=== PATIENT | female | born 1940 | race Asian ===

== ENCOUNTER 2020-07-06 21:50 | Emergency (ER) | payer OTHER ==
[~2020-07-06] VITALS: Ht 149.9 cm; Wt 54.4 kg
[2020-07-06 22:28] LABS: EOSINOPHILS % (AUTO) 0.1 % (0.0-6.0); HEMOGLOBIN 11.8 g/dL (11.5-14.8); NEUTROPHILS # (AUTO) 9.3 /CMM (1.8-8.9)
[2020-07-06] MEDS ORDERED: IV NS 0.9% 1,000 ML BAG IV ONE (22:30)
[2020-07-06 22:31] LABS: BASOPHILS % (AUTO) 0.2 % (0.0-2.0); HEMATOCRIT 34 % (33-45); LYMPHOCYTES # (AUTO) 0.2 /CMM (0.8-4.8); LYMPHOCYTES % (AUTO) 1.6 % (20.0-44.0); MEAN CORPUSCULAR HGB CONC 35 g/dl (31.0-36.0); MEAN CORPUSCULAR VOLUME 95 fL (82-100); MONOCYTES % (AUTO) 9.1 % (2.0-12.0); PLATELET COUNT (AUTO) 149 /CMM (150-450); RED BLOOD CELL COUNT(AUTO) 3.57 MIL/uL (4.0-5.2); WHITE BLOOD COUNT (AUTO) 10.5 K/uL (4.3-11.0)
[2020-07-06 22:38] LABS: CALCIUM, SERUM 8.4 mg/dL (8.5-10.1); CARBON DIOXIDE 27 mmol/L (21-32); CHLORIDE 102 mmol/L (98-107); CREATININE 1.4 mg/dL (0.6-1.3); GLUCOSE 178 mg/dL (74-106); POTASSIUM 3.9 mmol/L (3.5-5.1); SODIUM SERUM 137 mmol/L (136-145); UREA NITROGEN, BLOOD 39 mg/dL (7-18)
[2020-07-06 22:43] LABS: ALANINE AMINOTRANSFERASE 8 U/L (12-78); ALBUMIN 3.3 g/dL (3.4-5.0); ALKALINE PHOSPHATASE 63 U/L (46-116); ASPARTATE AMINOTRANSFERASE 21 U/L (15-37); BILIRUBIN,DIRECT 0.3 mg/dL (0.0-0.2); TOTAL PROTEIN, SERUM 7.2 g/dL (6.4-8.2)
[2020-07-06 23:24] LABS: BILIRUBIN,URINE Negative (NEGATIVE); COLOR,URINE ORANGE (YELLOW); LEUKOCYTE ESTERASE ,URINE Large (NEGATIVE); NITRITE, URINE Positive (NEGATIVE); PROTEIN,URINE 100 mg/dl (NEGATIVE); UGLUCOSE Negative (NEGATIVE); UROBILINOGEN,URINE 0.2 EU/dL (0.2)
[2020-07-06 23:36] LABS: BACTERIA,URINE 3+ /HPF (None Seen); WBC,URINE 51-80 /HPF (0-3)
[2020-07-07] MEDS ORDERED: LEVOFLOXACIN 500 MG /D5W 100ML 100 ML IV ONE (00:43)
[2020-07-07] MEDS ORDERED: AZITHROMYCIN 500 MG in IV D5W 250 ML IV ONE (01:00)
[2020-07-07] MEDS ORDERED: LEVOFLOXACIN 500 MG /D5W 100ML 500 MG/100 ML PIGGYBACK IV ONE (01:00)
[2020-07-07] MEDS ORDERED: CEFTRIAXONE 1 G in IV D5W 50 ML IV ONE (01:00)
[2020-07-07] MEDS ORDERED: NITROFURANTOIN MACROCRYSTAL 50 MG CAPSULE PO SCH (01:00)
[2020-07-07] MEDS ORDERED: CEFTRIAXONE 1GM BAG (ER ONLY) 50 ML IV ONE (01:05)
[2020-07-07] MEDS ORDERED: NITROFURANTOIN/NITROFURAN MAC 100 MG CAPSULE ONE (01:20)
[2020-07-07] MEDS ORDERED: AZITHROMYCIN 500 MG VIAL ONE (01:26)
[2020-07-07] MEDS ORDERED: TRAZODONE 50 MG TABLET PO ONE (02:00)
[2020-07-07] MEDS ORDERED: TRAZODONE 50 MG TABLET ONE (02:05)
[2020-07-07] MEDS ORDERED: DEXL60CA3 PO (02:47)
[2020-07-07] MEDS ORDERED: ENTA200T PO (02:47)
[2020-07-07] MEDS ORDERED: TRAZ-182 PO (02:47)
[2020-07-07] MEDS ORDERED: ROPI2TAB PO (02:47)
[2020-07-07] MEDS ORDERED: OXYB5TAB16 PO (02:47)
[2020-07-07] MEDS ORDERED: CARB-93 PO (02:47)
[2020-07-07 06:56] VITALS: BP 124/99
== END 2020-07-07 07:29 | disposition short-term general hospital (02) ==
LOC: ER 21:55
DX: N39.0 Urinary tract infection, site not specified (principal); N17.9 Acute kidney failure, unspecified; R94.31 Abnormal electrocardiogram [ECG] [EKG]; R91.8 Other nonspecific abnormal finding of lung field; Z20.822 Contact with and (suspected) exposure to COVID-19; G20 Parkinson's disease; F02.80 Dementia in other diseases classified elsewhere, unspecified severity, without behavioral disturbance, psychotic disturbance, mood disturbance, and anxiety; I10 Essential (primary) hypertension; Z88.1 Allergy status to other antibiotic agents
CPT/HCPCS: 36415; 71045; 80048; 80076; 81001; 83605; 84484; 85025; 87040 ×2; 87077; 87086; 87186; 87426; 93005; 96361; 96365; 96368; 99285; J0456; J0696; J1956; J7030; A6407; C9803; J7060

== ENCOUNTER 2021-09-13 15:44 | Emergency (ER) | payer OTHER ==
[~2021-09-13] VITALS: Ht 149.9 cm; Wt 52.6 kg
[~2021-09-13 15:44] MED LIST: CARB-300 PO; DEXL60CA3 PO; ENTA200T PO; OXYB5TAB16 PO; ROPI2TAB PO; TRAZ-182 PO
--- NOTE | 2021-09-13 15:44 | NUR ---
PT BIB FAMILY C/O FEVER AND DIARRHEA X 2 DAYS. COUGH X 3 DAYS. PT IS AAOX4, NOT IN RESPIRATORY DISTRESS, V/S STABLE, KEPT RESTED AND COMFORTABLE. WILL CONTINUE TO MONITOR.
--- NOTE | 2021-09-13 16:00 | NUR ---
BIB FAMILY C/O FEVER X2DAYS, COUGH X3DAYS, DIARRHEA X2DAY, FINISHED MEDROL PACK TODAY FOR COUGH. GIVEN TYLENOL AT 11AM. AFEBRILE UPON ARRIVAL. PLACED COMFORTABLY IN BED. VITALS CHECKED.
--- NOTE | 2021-09-13 17:38 | NUR ---
COVID RAPID SWAB DONE AND SENT TO LAB
--- NOTE | 2021-09-13 18:20 | NUR ---
APPRISE COUNSELOR AT BEDSIDE
--- NOTE | 2021-09-13 18:25 | NUR ---
CXR DONE AT BEDSIDE.
--- NOTE | 2021-09-13 18:32 | NUR ---
IV CANNULA INSERTED ON LEFT AC G20.
--- NOTE | 2021-09-13 18:32 | NUR ---
COVID PCR AND RAPID INFLUENZA A/B SWAB DONE AND SENT TO LAB
[2021-09-13 18:39] LABS: CALCIUM, SERUM 8.6 mg/dL (8.5-10.1); CARBON DIOXIDE 26 mmol/L (21-32); CHLORIDE 102 mmol/L (98-107); CREATININE 1.3 mg/dL (0.6-1.3); GLUCOSE 105 mg/dL (74-106); POTASSIUM 4.6 mmol/L (3.5-5.1); SODIUM SERUM 138 mmol/L (136-145); UREA NITROGEN, BLOOD 28 mg/dL (7-18)
[2021-09-13 19:53] LABS: BASOPHILS % (AUTO) 0.3 % (0.0-2.0); EOSINOPHILS % (AUTO) 0.4 % (0.0-6.0); HEMATOCRIT 38 % (33-45); LYMPHOCYTES # (AUTO) 0.6 K/uL (0.8-4.8); MEAN CORPUSCULAR HGB CONC 34 g/dl (31.0-36.0); MEAN CORPUSCULAR VOLUME 94 fL (82-100); MONOCYTES # (AUTO) 0.5 K/uL (0.1-1.30); MONOCYTES % (AUTO) 20.1 % (2.0-12.0); NEUTROPHILS # (AUTO) 1.4 K/uL (1.8-8.9); NEUTROPHILS % (AUTO) 57.2 % (43.0-81.0); PLATELET COUNT (AUTO) 118 K/uL (150-450); RED BLOOD CELL COUNT(AUTO) 4.02 MIL/uL (4.0-5.2); WHITE BLOOD COUNT (AUTO) 2.5 K/uL (4.3-11.0)
[2021-09-13 20:32] LABS: BAND % (MANUAL) 4 % (0.0-5.0); LYMPHOCYTES % (MANUAL) 22 % (16-48); MONOCYTES % (MANUAL) 18 % (0-11.0)
--- NOTE | 2021-09-13 20:32 | NUR ---
urine specimen sent to lab
[2021-09-13 20:33] LABS: NEUTROPHILS % (MANUAL) 44 (42-76)
[2021-09-13 21:23] LABS: BILIRUBIN,URINE NEGATIVE (NEGATIVE); COLOR,URINE YELLOW (YELLOW); LEUKOCYTE ESTERASE ,URINE NEGATIVE (NEGATIVE); NITRITE, URINE NEGATIVE (NEGATIVE); PROTEIN,URINE 30 mg/dl (NEGATIVE); UGLUCOSE NEGATIVE (NEGATIVE); UROBILINOGEN,URINE 0.2 EU/dL (0.2)
[2021-09-13 22:33] VITALS: BP 190/86
--- NOTE | 2021-09-13 22:33 | NUR ---
Patient discharged to home in stable condition. Written and verbal after care instructions given. Patient verbalizes understanding of instruction.
--- NOTE | 2021-09-13 22:33 | NUR ---
IV CANNULA REMOVED
== END 2021-09-13 22:34 | disposition home or self-care (01) ==
LOC: ER 15:54
DX: U07.1 COVID-19 (principal); R94.31 Abnormal electrocardiogram [ECG] [EKG]; G20 Parkinson's disease; F02.80 Dementia in other diseases classified elsewhere, unspecified severity, without behavioral disturbance, psychotic disturbance, mood disturbance, and anxiety; I10 Essential (primary) hypertension; Z87.440 Personal history of urinary (tract) infections; Z79.899 Other long term (current) drug therapy; D72.819 Decreased white blood cell count, unspecified
CPT/HCPCS: 36415; 71045-TC; 80048-TC; 83605-TC; 83880; 84484-TC; 85025-TC; 87040-TC; C9803; U0003